=== PATIENT | female | born 1990 | race Caucasian/White ===

== ENCOUNTER 2017-01-02 19:04 | Emergency (ER) | payer SELFPAY ==
[2017-01-02 19:27] VITALS: BMI 26.4
[2017-01-02 19:31] VITALS: TEMP 98
[2017-01-02 19:58] LABS: URINE BILIRUBIN NEGATIVE (NEGATIVE); URINE BLOOD NEGATIVE (NEGATIVE); URINE GLUCOSE (UA) NEGATIVE (NEGATIVE); URINE KETONE NEGATIVE (NEGATIVE); URINE LEUKOCYTE ESTERASE NEGATIVE Leu/uL (NEGATIVE); URINE PROTEIN NEGATIVE mg/dL (<30 mg/dL); URINE UROBILINOGEN 0.2 E.U./dL (<1 E.U./dL)
[2017-01-02 20:00] LABS: URINE APPEARANCE CLEAR (CLEAR); URINE COLOR YELLOW (YELLOW)
--- NOTE | 2017-01-02 20:18 | ED PDOC ---
Arrival/HPI - General Chief Complaint: GI Problem Time Seen by Provider: 01/02/17 19:08 - History of Present Illness Narrative History of Present Illness (Text): 01/02/17 20:14 Patient is a 26 year old F, LMP November 18, with positive home test, presenting with complaint of multiple episodes of nausea, vomiting, burning epigastric pain after vomiting x weeks. She reports that she has not taken anything for the pain. She denies OB follow-up. Denies vaginal bleeding, vaginal discharge, flank pain, or dysuria. Denies chest pain or shortness of breath. Past Medical History - Infectious Disease Hx of Infectious Diseases: None - Psychiatric Hx Substance Use: No - Anesthesia Hx Anesthesia: No Family/Social History Family/Social History: denies: Blood Clots, Aortic/Thoracic Disection Smoking Status: Never Smoked Hx Alcohol Use: No Hx Substance Use: No Allergies/Home Meds Allergies/Adverse Reactions: Allergies No Known Allergies Allergy (Verified 01/02/17 19:27) Review of Systems - Review of Systems Constitutional: absent: Fatigue, Weight Change, Fevers, Night Sweats Eyes: absent: Vision Changes ENT: absent: Hearing Changes Respiratory: absent: SOB, Cough, Sputum, Wheezing Cardiovascular: absent: Chest Pain Gastrointestinal: Nausea, Vomiting, Appetite Changes, Other (epigastric burning after vomiting (only after vomiting)). absent: Abdominal Pain, Constipation, Diarrhea Genitourinary Female: absent: Dysuria, Frequency, Hematuria, Urine Output Changes, Vaginal Bleeding, Vaginal Discharge Musculoskeletal: Other (breast tenderness) Skin: absent: Rash Neurological: absent: Headache Physical Exam Vital Signs Temp Pulse Resp BP Pulse Ox 01/02/17 19:30 98.0 F 69 18 127/85 100 Temperature: Afebrile Blood Pressure: Normal Pulse: Regular Respiratory Rate: Normal Appearance: Positive for: Well-Appearing, Non-Toxic, Comfortable Pain Distress: None Mental Status: Positive for: Alert and Oriented X 3 - Systems Exam Head: Present: Atraumatic, Normocephalic Pupils: Present: PERRL Extroacular Muscles: Present: EOMI Mouth: Present: Moist Mucous Membranes Respiratory/Chest: Present: Clear to Auscultation, Good Air Exchange. No: Respiratory Distress, Accessory Muscle Use Cardiovascular: Present: Regular Rate and Rhythm, Normal S1, S2. No: Murmurs Abdomen: No: Tenderness, Distention Back: Present: Normal Inspection. No: CVA Tenderness Upper Extremity: Present: Normal Inspection Lower Extremity: Present: Normal Inspection Neurological: Present: GCS=15, CN II-XII Intact Psychiatric: Present: Alert, Oriented x 3 Medical Decision Making ED Course and Treatment: 01/02/17 20:17 Patient is and complaining of nausea, vomiting, and epigastric burning pain after vomiting. No vaginal bleeding or discharge or abdominal pain. Symptoms consistent with early . Will get ultrasound to confirm IUP, ua to r/o infection or ketones, and ekg. Although unlikely cardiac (due to clinical presentation and lack of risk factors) and more consistent with gerd and therefore will give pepcid. Spoke to patient at length about importance of arranging OB follow-up. EXAM: US First Trimester, Transabdominal FINDINGS: Gestation: A single intrauterine gestational sac is identified, with pole and yolk sac. The estimated gestational age is 6 weeks 3 days. The heart rate is 127 bpm. Placenta/amniotic fluid: There is a band of hypoechogenicity adjacent to the gestational sac measuring 1.3 x 0.3 cm, consistent with subchorionic hemorrhage. Uterus/cervix: The uterus measures 6.5 x 5.2 x 6.7 cm. The cervix is closed. No myometrial mass. Ovaries: Within the left ovary, there is a 1.7 x 0.8 x 1.2 cm hypoechoic corpus luteum cyst. There is peripheral increased vascular flow within the ovary. The right ovary measures 1.9 x 1.4 x 1.4 cm. There is physiologic blood flow within the right ovary. Small follicles are seen within the right ovary. The left ovary measures 2.8 x 2.1 x 2.3 cm. Free fluid: No free fluid. IMPRESSION: 1. A single viable intrauterine fetus is identified. 2. The estimated gestational age is 6 weeks 3 days. 3. Within the left ovary, there is a 1.7 x 0.8 x 1.2 cm hypoechoic corpus luteum cyst. 4. There is a band of hypoechogenicity adjacent to the gestational sac measuring 1.3 x 0.3 cm, consistent with subchorionic hemorrhage. 5. Follow-up ultrasonography is recommended. 01/02/17 21:24 EKG shows NSR at 62bpm with normal intervals and no ST changes. Urinalysis negative for ketones or infection. Patient given copy of ultrasound and instructed to follow-up with OB. - Lab Interpretations Lab Results: Lab Results 01/02/17 19:50: Urine Color Yellow, Urine Appearance Clear, Urine pH 7.0, Ur Specific [place] 1.010, Urine Protein Negative, Urine Glucose (UA) Negative, Urine Ketones Negative, Urine Blood Negative, Urine Nitrate Negative, Urine Bilirubin Negative, Urine Urobilinogen 0.2, Ur Leukocyte Esterase Negative - RAD Interpretation Radiology Orders: 01/02/17 19:45 OB TRANSVAGINAL [US] Routine - Medication Orders Current Medication Orders: Discontinued Medications Famotidine (Pepcid) 20 mg PO STAT STA Stop: 01/02/17 19:54 Last Admin: 01/02/17 21:01 Dose: 20 mg Disposition/Present on Arrival - Present on Arrival Any Indicators Present on Arrival: No History of DVT/PE: No History of Uncontrolled Diabetes: No Urinary Catheter: No History of Decub. Ulcer: No History Surgical Site Infection Following: None - Disposition Have Diagnosis and Disposition been Completed?: Yes Diagnosis: , Vomiting affecting Disposition: HOME/ ROUTINE Disposition Time: 21:25 Patient Plan: Discharge Patient Problems: Current Active Problems Problem Status Onset Acute Vomiting affecting Acute Condition: GOOD Discharge Instructions (ExitCare): Morning Sickness (ED), (ED), Hyperemesis Gravidarum (ED) Additional Instructions: Follow up with [facility] within 1 week. Return immediately with any worsening symptoms. Pepcid as needed. Prescriptions: Famotidine [Pepcid] 40 mg PO DAILY #30 tab Referrals: PCPJEFFREY [Primary Care Provider] - Follow up with primary Edmond Lagos [Medical Doctor] - Follow up with primary Forms: WORK NOTE
--- NOTE | 2017-01-02 21:14 | US ---
EXAM: US First Trimester, Transabdominal US , Transvaginal CLINICAL HISTORY: The patient age is 26 years old and is female; Pain; complicated by abdominal or pelvic pain; Lower; First trimester; Gestational age or lmp: 6 weeks 5 days; ; Additional info: , pain Facility exam id and description: Us obtransvag ob transvaginal TECHNIQUE: Real-time transabdominal and transvaginal obstetrical ultrasound of the maternal pelvis and a first trimester with image documentation. Transvaginal imaging was used for better evaluation of the fetus and adnexa. EXAM DATE/TIME: 01/02/2017 7:45 PM COMPARISON: No relevant prior studies available. FINDINGS: Gestation: A single intrauterine gestational sac is identified, with pole and yolk sac. The estimated gestational age is 6 weeks 3 days. The heart rate is 127 bpm. Placenta/amniotic fluid: There is a band of hypoechogenicity adjacent to the gestational sac measuring 1.3 x 0.3 cm, consistent with subchorionic hemorrhage. Uterus/cervix: The uterus measures 6.5 x 5.2 x 6.7 cm. The cervix is closed. No myometrial mass. Ovaries: Within the left ovary, there is a 1.7 x 0.8 x 1.2 cm hypoechoic corpus luteum cyst. There is peripheral increased vascular flow within the ovary. The right ovary measures 1.9 x 1.4 x 1.4 cm. There is physiologic blood flow within the right ovary. Small follicles are seen within the right ovary. The left ovary measures 2.8 x 2.1 x 2.3 cm. Free fluid: No free fluid. IMPRESSION: 1. A single viable intrauterine fetus is identified. 2. The estimated gestational age is 6 weeks 3 days. 3. Within the left ovary, there is a 1.7 x 0.8 x 1.2 cm hypoechoic corpus luteum cyst. 4. There is a band of hypoechogenicity adjacent to the gestational sac measuring 1.3 x 0.3 cm, consistent with subchorionic hemorrhage. 5. Follow-up ultrasonography is recommended.
[2017-01-02 21:45] VITALS: BP 126/80; PULSE 74; RESP 16; O2SAT 100
--- NOTE | 2017-01-03 11:07 | CARD ---
APPROVED REPORT EKG Measurement Heart [id number] DC [id number] [id number] <Conclusion> Normal sinus rhythm Normal ECG
== END 2017-01-02 21:45 | disposition home or self-care (01) ==
LOC: ED 19:04
DX: O21.0 Mild hyperemesis gravidarum (principal); Z3A.01 Less than 8 weeks gestation of pregnancy